=== PATIENT | female | born 1960 | race Caucasian/White ===

== ENCOUNTER → 2017-12-17 | Outpatient (CLI) | payer OTHER ==
--- NOTE | 2017-12-17 09:52 | DIAGNOSTIC IMAGING REPORT ---
SACRUM AND COCCYX 4 VIEWS; SACROILIAC JOINTS 3 VIEWS CLINICAL HISTORY: Low back pain. Sacrococcygeal pain. FINDINGS: 4 views of the sacrum and coccyx with 3 additional views the sacroiliac joints are compared to study dated 05/15/2010. The skeletal structures are osteopenic. No acute fracture is identified involving the sacrum or coccyx. The visualized bony pelvis appears intact. Sclerotic degenerative change is noted in the sacroiliac joints. No erosion is suggested. Minimal sclerosis is identified at the symphysis pubis. Lumbosacral spondylosis with facet arthropathy is partially visualized in the lower lumbar region. Advanced disc space narrowing with degenerative endplate sclerosis is seen at L5-S1. Numerous pelvic phleboliths are observed. There is no evidence of bowel obstruction. IMPRESSION: 1. No acute bony abnormality is seen involving the sacrum or coccyx. 2. Sclerotic degenerative change is noted in the sacroiliac joints. 3. Lumbosacral spondylosis is partially imaged. Electronically signed by: Toribio Olivera M.D. 12/17/2017 9:50 AM Dictated Date/Time: 12/17/2017 9:46 AM
--- NOTE | 2017-12-17 09:52 | DIAGNOSTIC IMAGING REPORT ---
C-SPINE ROUTINE 4 OR 5 VIEWS HISTORY: Pain M54.2 COMPARISON: None. FINDINGS: The cervical spine is visualized from C1 through the superior endplate of T1. There is no fracture. No subluxation. Significant degenerative disc change C4-C7. Moderate osteophytic narrowing of the neuroforamina bilaterally from C5 through C7. IMPRESSION: 1. Degenerative disc change C4-C7. 2. Osteophytic narrowing of the neuroforamina bilaterally C5-C7. 3. No acute compression deformity. The above report was generated using voice recognition software. It may contain grammatical, syntax or spelling errors. Electronically signed by: Dillon Resendiz M.D. 12/17/2017 9:50 AM Dictated Date/Time: 12/17/2017 9:49 AM
--- NOTE | 2017-12-17 09:55 | DIAGNOSTIC IMAGING REPORT ---
LUMBAR SPINE 5 VIEWS CLINICAL HISTORY: Chronic low back pain. FINDINGS: Five views of the lumbar spine are obtained. No prior studies are available for comparison at the time of dictation. The skeletal structures are osteopenic. Vertebral body height is maintained throughout the lumbar spine. Minimal anterolisthesis is seen at L2-L3 and minimal retrolisthesis is seen at L3-L4. Mild to moderate lumbar levocurvature is centered at L3. The transverse and spinous processes appear intact. There is no evidence of spondylolysis. Anterior osteophytes are seen throughout. Moderate to advanced facet arthropathy is seen in the mid to lower lumbar region. There is advanced disc space narrowing with endplate sclerosis seen at L5-S1. Moderate disc space narrowing is seen at L3-L4 and L4-L5, again with endplate sclerosis. Mild disc space narrowing is seen at the remaining lumbar levels. The bony pelvis is intact as visualized. Sclerotic change is noted in the sacroiliac joints. No bowel obstruction is seen. Phleboliths are observed in the pelvis. IMPRESSION: 1. No acute bony abnormality is seen involving the lumbar spine. 2. Osteopenia with lumbosacral spondylosis and scoliosis as above. Dictated: 12/17/2017 9:51 AM Transcribed: 12/17/2017 9:55 AM Randy Electronically signed by: Toribio Olievra M.D. 12/17/2017 9:55 AM Dictated Date/Time: 12/17/2017 9:51 AM
--- NOTE | 2017-12-17 09:56 | DIAGNOSTIC IMAGING REPORT ---
THORACIC SPINE 3 VIEWS ROUTINE HISTORY: Pain M54.2 COMPARISON: None. FINDINGS: There is no fracture. No subluxation. Significant degenerative disc change throughout. Degenerative change vertebral endplates. IMPRESSION: Significant degenerative disc change primarily of the mid to lower thoracic region. No acute process. The above report was generated using voice recognition software. It may contain grammatical, syntax or spelling errors. Electronically signed by: Dillon Resendiz M.D. 12/17/2017 9:54 AM Dictated Date/Time: 12/17/2017 9:52 AM
== END | disposition home or self-care (01) ==
LOC: C.RAD 08:22
PROVIDERS: ATTEND Nurse Practitioner Family
DX: M54.5 Low back pain (principal); M25.559 Pain in unspecified hip; M25.519 Pain in unspecified shoulder; M47.812 Spondylosis without myelopathy or radiculopathy, cervical region; M48.02 Spinal stenosis, cervical region; M85.88 Other specified disorders of bone density and structure, other site; M47.817 Spondylosis without myelopathy or radiculopathy, lumbosacral region; M41.9 Scoliosis, unspecified; M51.34 Other intervertebral disc degeneration, thoracic region; M53.3 Sacrococcygeal disorders, not elsewhere classified

== ENCOUNTER → 2017-12-20 | Outpatient (CLI) | payer OTHER | END | disposition home or self-care (01) | LOC: C.PATHSPEC 11:28 | PROVIDERS: ATTEND Dentist Endodontics | DX: K05.30 Chronic periodontitis, unspecified (principal) ==

== ENCOUNTER → 2018-02-17 | Outpatient (CLI) | payer OTHER | END | disposition home or self-care (01) | LOC: C.MAMM 15:06 | PROVIDERS: ATTEND Family Medicine | DX: M85.80 Other specified disorders of bone density and structure, unspecified site (principal) ==